=== PATIENT | female | born 1950 | race Caucasian/White ===

== ENCOUNTER → 2017-12-03 | Outpatient (CLI) | payer OTHER | LOC: NUC 06:30 | DX: M81.0 Age-related osteoporosis without current pathological fracture (principal); Z78.0 Asymptomatic menopausal state ==

== ENCOUNTER → 2018-01-06 | Outpatient (CLI) | payer OTHER, BC | LOC: RAD 02:11 | DX: Z12.31 Encounter for screening mammogram for malignant neoplasm of breast (principal); M81.0 Age-related osteoporosis without current pathological fracture ==

== ENCOUNTER → 2019-01-09 | Outpatient (CLI) | payer OTHER, BC | LOC: RAD 06:17 | DX: Z12.31 Encounter for screening mammogram for malignant neoplasm of breast (principal) ==

== ENCOUNTER → 2020-01-13 | Outpatient (CLI) | payer OTHER, BC | LOC: RAD 09:16 | PROVIDERS: ATTEND Obstetrics & Gynecology | DX: M81.0 Age-related osteoporosis without current pathological fracture (principal) ==

== ENCOUNTER → 2020-01-13 | Outpatient (CLI) | payer OTHER, BC | LOC: NUC 08:15 | PROVIDERS: ATTEND Obstetrics & Gynecology | DX: Z12.31 Encounter for screening mammogram for malignant neoplasm of breast (principal); N63.20 Unspecified lump in the left breast, unspecified quadrant ==

== ENCOUNTER → 2020-09-15 | Outpatient (CLI) | payer OTHER, BC | LOC: RAD 14:12 → ULTRA 14:12 | PROVIDERS: ATTEND Obstetrics & Gynecology | DX: N63.0 Unspecified lump in unspecified breast (principal); R22.32 Localized swelling, mass and lump, left upper limb ==